=== PATIENT | male | born 1945 | race Caucasian/White ===

== ENCOUNTER 2022-06-25 14:57 | Outpatient (CLI) | payer MEDICARE, SELFPAY | END 2022-06-25 14:58 | disposition home or self-care (01) | LOC: AMB 07-13 23:56 | PROVIDERS: Visit Provider Family Medicine | DX: I21.29 ST elevation (STEMI) myocardial infarction involving other sites (principal) | CPT/HCPCS: A0425; A0426; A0434 ==